=== PATIENT | male | born 1950 | race Caucasian/White ===

== ENCOUNTER 2017-06-01 14:58 | Day surgery (SDC) | payer MEDICARE ==
--- NOTE | 2017-06-01 15:50 | OR ---
Anesthesia Pre Procedure Eval Date of Service: 06/01/17 Pre Procedure Evaluation: Last Vital Signs Temp 36.3 C L 06/01/17 15:21 Pulse 73 06/01/17 15:21 Resp 16 06/01/17 15:21 BP 146/72 06/01/17 15:21 Pulse Ox 96 06/01/17 15:21 Anesthesia Pre Procedure Evaluation DATE: 06/01/2017 TIME: 1540 INDICATIONS: Disc bulges, lumbar spinal stenosis, low back and bilateral radicular pain, right hip and radicular pain worse than left. PAST MEDICAL HISTORY: Mr. Stewart and has had a number of back and neck issues including surgical intervention on his neck earlier this year. His pain primarily involves the low back and is described as cramping in the legs particularly at night however the most bothersome aspect of his pain is his right hip sharp discomfort. History of GERD: No History of smoking: Known History of sleep apnea: No EXAM: Heart regular; lungs clear ASSESSMENT OF MEDICAL STATUS: did not have anything to eat this morning therefore did not take his insulin. Subsequently, his blood sugar is over 200 currently. I discussed at length the issue of increasing blood sugar with steroid use and emphasized to him and his family that he must be very careful particularly in the first 2 days as well as the next 2 weeks that the blood sugar can spike due to the steroid. He and his family appeared to be very well aware of this phenomena understood and agreed to watch it carefully and treat accordingly, seeking help when necessary during this time. In reviewing the MRI. At his primary levels of issue were on the L2-3, L3 4, and L4 5 levels. The request for epidural appears to be for L5-S1 however I see it as being more appropriate to go above this level. PLANNED PROCEDURE: Lumbar epidural steroid injection Home Medications: HOME MEDICATIONS Aspirin [Aspirin Enteric Coated] 81 mg PO DAILY 10/23/15 [Last Taken Unknown] FLUoxetine HCL [Prozac] 60 mg PO DAILY 10/23/15 [Last Taken Unknown] Gabapentin [Neurontin] 600 mg PO TID 10/23/15 [Last Taken Unknown] Insulin Glargine,Hum.rec.anlog [Lantus] 22 units SC HS 10/23/15 [Last Taken Unknown] Insulin Lispro [Humalog] 0 units IV PRN PRN 10/23/15 [Last Taken Unknown] Losartan/Hydrochlorothiazide [Hyzaar 100-25 Tablet] 1 each PO DAILY 10/23/15 [ Last Taken Unknown] Meloxicam [Mobic] 15 mg PO DAILY 10/23/15 [Last Taken Unknown] Simvastatin [Zocor] 40 mg PO HS 10/23/15 [Last Taken Unknown] Verapamil HCl [Verapamil ER] 120 mg PO DAILY 10/23/15 [Last Taken Unknown]
[2017-06-01] MEDS ORDERED: DEXAMETHASONE SOD PHOSPHATE 10 MG/ML VIAL IJ ONE (16:07)
[2017-06-01] MEDS ORDERED: LIDOCAINE HCL/PF 5 ML VIAL IJ ONE (16:08)
[2017-06-01] MEDS ORDERED: IOPAMIDOL 20 ML VIAL IJ ONE (16:09)
--- NOTE | 2017-06-01 16:22 | OR ---
Anesthesia Procedure Note - Anesthesia Procedure Note Date of Service: 06/01/17 Narrative: Vital Signs - Last Taken Temp 36.3 C L 06/01/17 15:21 Pulse 73 06/01/17 16:10 Resp 18 06/01/17 16:10 BP 154/75 06/01/17 16:10 Pulse Ox 95 06/01/17 16:10 O2 Oxygen Delivery Method Room Air 06/01/17 16:17 ANESTHESIA PROCEDURE NOTE Date of Procedure: 06/01/2017 Time of procedure: 1605. Performed by: Jose Skaggs CRNA, BATHING SUIT MAKER, MSN Cell Tender Helper: Dimple Baird RN. Preprocedure diagnosis: Spinal stenosis, low back and radicular pain. Post procedure diagnosis: Same. Procedure: Epidural Steroid Injection L4 5. Indications: Spinal stenosis and back pain with right radicular pain. Findings: See below. Details of the procedure: After the MRI report and films were reviewed, the patient was interviewed where risks and the procedure were explained. The patient was then brought to over #3 and was placed in the prone position. The back was prepped with DuraPrep and draped in a sterile fashion. The lumbar area was identified under fluoroscopy and the L4 5 space was localized with 1% lidocaine solution. The epidural space was identified using loss of resistance technique using a #20-gauge Touhy needle. 1 mL of Isovue was injected while the C-arm was positioned in the lateral orientation. The C-arm was then readjusted to an AP view and Isovue 200 1 milliliters was injected demonstrating a spread at the affected area and lower. Dexamethasone 10mg and lidocaine 1% 5 mL was injected, stylette was replaced and the epidural needle removed. A Band-Aid was then applied to the injection site, patient was placed in a supine position for 5 minutes then returned to ASU with good relief of pain , from a 9/10 to 0/10. EBL: None. Energy: 6.9 Seconds, 1.8 to mGy Fluids: N/A. Specimen: N/A. Post procedure condition: The patient tolerated the procedure well. No complications were noted. Thank you for this consultation. Jose Skaggs CRNA, MSN, BATHING SUIT MAKER
[2017-06-01 16:50] VITALS: BP 137/65
== END 2017-06-01 14:59 | disposition home or self-care (01) ==
LOC: AMB 14:58
PROVIDERS: ATTEND Orthopaedic Surgery Orthopaedic Surgery of the Spine
PROC: 3E0S3BZ Introduction of Anesthetic Agent into Epidural Space, Percutaneous Approach (ICD-10-PCS; 2017-06-01)
PROC: 3E0S33Z Introduction of Anti-inflammatory into Epidural Space, Percutaneous Approach (ICD-10-PCS; principal; 2017-06-01 15:00)
DX: M48.06 Spinal stenosis, lumbar region (principal); Z68.25 Body mass index [BMI] 25.0-25.9, adult